=== PATIENT | female | born 1950 | race Two or more races ===

== ENCOUNTER 2023-07-04 10:01 | Outpatient (RCR) | payer OTHER, SELFPAY | END 2023-07-04 23:59 | disposition home or self-care (01) | LOC: RST 10:01 | PROVIDERS: ATTENDING PHYSICIAN Nurse Practitioner Adult Health | DX: I69.320 Aphasia following cerebral infarction (principal); I69.328 Other speech and language deficits following cerebral infarction; I69.398 Other sequelae of cerebral infarction; R26.2 Difficulty in walking, not elsewhere classified | CPT/HCPCS: 92507; 97110; 97112; 97530; 97535 ==

== ENCOUNTER 2023-07-27 09:36 | Outpatient (RCR) | payer OTHER, SELFPAY | END 2023-07-27 23:59 | disposition home or self-care (01) | LOC: RST 09:36 | PROVIDERS: ATTENDING PHYSICIAN Nurse Practitioner Adult Health | DX: I69.320 Aphasia following cerebral infarction (principal); I69.328 Other speech and language deficits following cerebral infarction | CPT/HCPCS: 92507; 97110; 97530; 97535 ==

== ENCOUNTER 2023-08-24 13:14 | Outpatient (RCR) | payer OTHER, SELFPAY | END 2023-08-27 07:49 | disposition home or self-care (01) | LOC: RST 13:14 | PROVIDERS: ATTENDING PHYSICIAN Nurse Practitioner Adult Health | DX: I69.320 Aphasia following cerebral infarction (principal); Z73.6 Limitation of activities due to disability; I69.328 Other speech and language deficits following cerebral infarction; I69.311 Memory deficit following cerebral infarction; I69.310 Attention and concentration deficit following cerebral infarction; R26.89 Other abnormalities of gait and mobility | CPT/HCPCS: 92507; 97530; 97535 ==

== ENCOUNTER 2024-01-30 06:54 | Outpatient (RCR) | payer OTHER, SELFPAY | END 2024-01-30 23:59 | disposition home or self-care (01) | LOC: ROT 06:54 | PROVIDERS: ATTENDING PHYSICIAN Neuromusculoskeletal Medicine & OMM; FAMILY PHYSICIAN Physician Assistant | DX: I69.398 Other sequelae of cerebral infarction (principal); Z73.6 Limitation of activities due to disability | CPT/HCPCS: 97167; 97530 ==

== ENCOUNTER 2024-03-03 14:26 | Outpatient (RCR) | payer OTHER, SELFPAY | END 2024-03-03 23:59 | disposition home or self-care (01) | LOC: RST 14:26 | PROVIDERS: ATTENDING PHYSICIAN Neuromusculoskeletal Medicine & OMM; FAMILY PHYSICIAN Physician Assistant | DX: I63.212 Cerebral infarction due to unspecified occlusion or stenosis of left vertebral artery (principal); I63.312 Cerebral infarction due to thrombosis of left middle cerebral artery (principal); Z73.6 Limitation of activities due to disability; I69.319 Unspecified symptoms and signs involving cognitive functions following cerebral infarction; I69.310 Attention and concentration deficit following cerebral infarction; I69.314 Frontal lobe and executive function deficit following cerebral infarction | CPT/HCPCS: 96125; 97129; 97130; 97530; 97535 ==

== ENCOUNTER 2024-04-03 12:56 | Outpatient (RCR) | payer OTHER, SELFPAY | END 2024-04-03 23:59 | disposition home or self-care (01) | LOC: ROT 12:56 | PROVIDERS: ATTENDING PHYSICIAN Neuromusculoskeletal Medicine & OMM; FAMILY PHYSICIAN Physician Assistant | DX: I69.319 Unspecified symptoms and signs involving cognitive functions following cerebral infarction (principal); Z73.6 Limitation of activities due to disability | CPT/HCPCS: 97129; 97130; 97530; 97535; 97537 ==

== ENCOUNTER 2024-05-02 14:23 | Outpatient (RCR) | payer OTHER, SELFPAY | END 2024-05-02 23:59 | disposition home or self-care (01) | LOC: ROT 14:23 | PROVIDERS: ATTENDING PHYSICIAN Neuromusculoskeletal Medicine & OMM; FAMILY PHYSICIAN Physician Assistant | DX: I69.318 Other symptoms and signs involving cognitive functions following cerebral infarction (principal); I63.312 Cerebral infarction due to thrombosis of left middle cerebral artery (principal); I69.314 Frontal lobe and executive function deficit following cerebral infarction; I69.310 Attention and concentration deficit following cerebral infarction; Z73.6 Limitation of activities due to disability; I69.320 Aphasia following cerebral infarction; I69.328 Other speech and language deficits following cerebral infarction | CPT/HCPCS: 97129; 97130; 97530; 97535 ==

== ENCOUNTER 2024-05-22 14:21 | Outpatient (RCR) | payer OTHER, SELFPAY | END 2024-05-22 23:59 | disposition home or self-care (01) | LOC: ROT 14:21 | PROVIDERS: ATTENDING PHYSICIAN Neuromusculoskeletal Medicine & OMM; FAMILY PHYSICIAN Physician Assistant | DX: I69.318 Other symptoms and signs involving cognitive functions following cerebral infarction (principal); I69.310 Attention and concentration deficit following cerebral infarction; I69.314 Frontal lobe and executive function deficit following cerebral infarction; Z73.6 Limitation of activities due to disability; I69.320 Aphasia following cerebral infarction; I69.328 Other speech and language deficits following cerebral infarction; I63.312 Cerebral infarction due to thrombosis of left middle cerebral artery | CPT/HCPCS: 97129; 97130 ==

== ENCOUNTER 2024-06-26 11:58 | Outpatient (RCR) | payer OTHER, SELFPAY | END 2024-06-26 23:59 | disposition home or self-care (01) | LOC: ROT 11:58 | PROVIDERS: ATTENDING PHYSICIAN Neuromusculoskeletal Medicine & OMM; FAMILY PHYSICIAN Physician Assistant | DX: I69.318 Other symptoms and signs involving cognitive functions following cerebral infarction (principal); I69.310 Attention and concentration deficit following cerebral infarction; I69.314 Frontal lobe and executive function deficit following cerebral infarction; Z73.6 Limitation of activities due to disability; I69.320 Aphasia following cerebral infarction; I69.328 Other speech and language deficits following cerebral infarction; I63.312 Cerebral infarction due to thrombosis of left middle cerebral artery | CPT/HCPCS: 97129; 97130; 97535 ==

== ENCOUNTER 2024-07-28 06:56 | Outpatient (RCR) | payer OTHER, SELFPAY | END 2024-07-28 23:59 | disposition home or self-care (01) | LOC: ROT 06:56 | PROVIDERS: ATTENDING PHYSICIAN Neuromusculoskeletal Medicine & OMM; FAMILY PHYSICIAN Physician Assistant | DX: I63.212 Cerebral infarction due to unspecified occlusion or stenosis of left vertebral artery (principal); I69.318 Other symptoms and signs involving cognitive functions following cerebral infarction (principal); I69.310 Attention and concentration deficit following cerebral infarction; I69.314 Frontal lobe and executive function deficit following cerebral infarction; Z73.6 Limitation of activities due to disability; I69.320 Aphasia following cerebral infarction; I69.328 Other speech and language deficits following cerebral infarction; I63.312 Cerebral infarction due to thrombosis of left middle cerebral artery | CPT/HCPCS: 97530 ==

== ENCOUNTER 2024-08-25 09:51 | Outpatient (RCR) | payer OTHER, SELFPAY | END 2024-08-25 23:59 | disposition home or self-care (01) | LOC: ROT 09:51 | PROVIDERS: ATTENDING PHYSICIAN Neuromusculoskeletal Medicine & OMM; FAMILY PHYSICIAN Physician Assistant | DX: I69.318 Other symptoms and signs involving cognitive functions following cerebral infarction (principal); I69.310 Attention and concentration deficit following cerebral infarction; I69.314 Frontal lobe and executive function deficit following cerebral infarction; I69.320 Aphasia following cerebral infarction; Z73.6 Limitation of activities due to disability; I69.328 Other speech and language deficits following cerebral infarction; I63.312 Cerebral infarction due to thrombosis of left middle cerebral artery; I63.212 Cerebral infarction due to unspecified occlusion or stenosis of left vertebral artery | CPT/HCPCS: 97530; 97537 ==

== ENCOUNTER 2024-09-30 06:28 | Outpatient (RCR) | payer OTHER, SELFPAY | END 2024-09-30 23:59 | disposition home or self-care (01) | LOC: ROT 06:28 | PROVIDERS: ATTENDING PHYSICIAN Neuromusculoskeletal Medicine & OMM; FAMILY PHYSICIAN Physician Assistant | DX: I69.318 Other symptoms and signs involving cognitive functions following cerebral infarction (principal); I63.212 Cerebral infarction due to unspecified occlusion or stenosis of left vertebral artery; I69.310 Attention and concentration deficit following cerebral infarction; I69.314 Frontal lobe and executive function deficit following cerebral infarction; I69.320 Aphasia following cerebral infarction; Z73.6 Limitation of activities due to disability; I69.328 Other speech and language deficits following cerebral infarction; I63.312 Cerebral infarction due to thrombosis of left middle cerebral artery | CPT/HCPCS: 97530; 97537 ==

== ENCOUNTER 2024-10-07 08:44 | Outpatient (RCR) | payer OTHER, SELFPAY | END 2024-10-07 23:59 | disposition home or self-care (01) | LOC: ROT 08:44 | PROVIDERS: ATTENDING PHYSICIAN Neuromusculoskeletal Medicine & OMM; FAMILY PHYSICIAN Physician Assistant | DX: I69.318 Other symptoms and signs involving cognitive functions following cerebral infarction (principal); I69.310 Attention and concentration deficit following cerebral infarction; I69.314 Frontal lobe and executive function deficit following cerebral infarction; I69.320 Aphasia following cerebral infarction; Z73.6 Limitation of activities due to disability; I69.328 Other speech and language deficits following cerebral infarction; I63.212 Cerebral infarction due to unspecified occlusion or stenosis of left vertebral artery; I63.312 Cerebral infarction due to thrombosis of left middle cerebral artery | CPT/HCPCS: 97530; 97537 ==